=== PATIENT | male | born 1955 | race Caucasian/White ===

== ENCOUNTER 2016-06-30 20:25 | Emergency (ER) | payer OTHER ==
[~2016-06-30] VITALS: Ht 180.3 cm; Wt 90.0 kg
[~2016-06-30 20:25] MED LIST: APIX5TAB PO
[2016-06-30 20:29] VITALS: Ht 180.3 cm; Wt 90.0 kg
[2016-06-30] MEDS ORDERED: CEPH500C PO (22:29)
[2016-06-30] MEDS ORDERED: APIX5TAB PO (22:29)
[2016-06-30 23:10] VITALS: BP 162/82; PULSE 95; RESP 16
--- NOTE | 2016-07-01 04:52 | ERD ---
ER Documentation Chief Complaint Date/Time DATE: 07/01/16 TIME: 04:49 Chief Complaint right leg pain, wants to know if current meds be continued HPI This is a 61-year-old male presenting to the emergency room with a history of DVT that was diagnosed on June 24, 2016 at this hospital. Patient had a blood clot in the right popliteal and right saphenous vein. Patient was placed on Eliquis for 7 days and was instructed to follow-up with his primary care physician. Patient states that he followed up with his primary care physician a couple days ago in which they prescribed him a medication however he was unable to get at the pharmacy. Patient was referred to see a vascular surgeon however he has not followed up, patient states he has an appointment next week. Patient states the pain is still there however it has gotten a lot better since a week ago. ROS All systems reviewed and are negative except as per history of present illness. Medications Home Meds Active Scripts Cephalexin* (Cephalexin*) 500 Mg Capsule, 500 MG PO Q6, #30 CAP Prov:BRITTNY DUGAN PA-C 06/30/16 Apixaban* (Eliquis*) 5 Mg Tablet, 5 MG PO BID, #30 TAB Prov:BRITTNY DUGAN PA-C 06/30/16 Apixaban* (Eliquis*) 5 Mg Tablet, 10 MG PO BID for 7 Days, TAB please follow up with primary care for continue treatment Prov:GANESH CHINO NP 06/24/16 Reported Medications [none] No Conflict Check 06/30/10 Allergies Allergies: Coded Allergies: iodine (Verified Allergy, Mild, 06/30/10) PMhx/Soc History of Surgery: Yes (TORSION, LEFT ARM SURGERY, CALF SURGERY, SCAPULA, BIOPSY) Anesthesia Reaction: No Hx Neurological Disorder: No Hx Respiratory Disorders: No Hx Cardiac Disorders: No Hx Psychiatric Problems: Yes (DEPRESSION) Hx Miscellaneous Medical Probl: Yes (right leg DVT) Hx Alcohol Use: Yes (OCCASIONALLY) Hx Substance Use: No Hx Tobacco Use: No Smoking Status: Never smoker Physical Exam Vitals Vital Signs Date Time Temp Pulse Resp B/P Pulse Ox O2 Delivery O2 Flow Rate FiO2 06/30/16 23:10 95 16 162/82 100 Room Air 1/6/17 20:29 20.0 88 20 180/91 98 Physical Exam General: WD/WN, in no apparent distress, non-toxic appearing HENT: NC/AT Eyes: Conjunctiva normal Neck: Supple Pulm: Clear to auscultation, normal labored breathing; no wheezing/rales/ rhonchi heard CV: Good capillary refill GI: Non-distended, no guarding Back: No masses Ext: No clubbing, cyanosis, or edema Neuro: Moves on all fours Skin: edema and erythema noted in posterior right calf Normal turgor, color, and temperature. No ulcerations or rashes noted. Psych: Normal mood Procedures/MDM This is a 61-year-old male presenting to the emergency room with a history of DVT that was diagnosed on June 24, 2016 at this hospital. Patient had a blood clot in the right popliteal and right saphenous vein. Patient was placed on Eliquis for 7 days and was instructed to follow-up with his primary care physician. Patient states that he followed up with his primary care physician a couple days ago in which they prescribed him a medication however he was unable to get at the pharmacy. Patient was referred to see a vascular surgeon however he has not followed up, patient states he has an appointment next week. Patient states the pain is still there however it has gotten a lot better since a week ago. Prescription for Eliquis 5 mg twice daily was provided. I discussed with patient to follow-up with the vascular surgeon next week. I discussed return to the ER for any worsening signs or symptoms. I have a low suspicion for pulmonary embolism, patient did not have any shortness of breath or chest pain. Patient has stable vital signs for discharge. I have consulted regarding patient and he helped advise the plan, he agrees with plan above Departure Diagnosis: Primary Impression: DVT (deep venous thrombosis) Condition: Fair Patient Instructions: Dvt Additional Instructions: FOLLOW UP WITH YOUR PRIMARY CARE PHYSICIAN TOMORROW.Return to this facility if you are not improving as expected. Take all medicines as directed. Return to this facility if you are not improving as expected. BRITTNY DUGAN PA-C Jul 01, 2016 04:52
== END 2016-06-30 23:10 | disposition home or self-care (01) ==
LOC: FTE 20:25
DX: I82.491 Acute embolism and thrombosis of other specified deep vein of right lower extremity (principal)
CPT/HCPCS: 99284